=== PATIENT | female | born 2005 ===

== ENCOUNTER 2024-04-12 18:56 | Emergency (ER) | payer OTHER ==
[2024-04-12] MEDS: Ondansetron 4 MG/2 ML SDV IVPUSH STA (19:51)
[2024-04-12] MEDS: Sodium Chloride 0.9% 2.5 ML Syringe FLUSH PRN (19:52)
[2024-04-12] MEDS: Sodium Chloride 0.9% 1,000 ML IV STA (19:52)
[2024-04-12] MEDS: Sodium Chloride 0.9% 10 ML Syringe FLUSH PRN (19:52)
[2024-04-12 20:38] LABS: BASOPHILS ABSOLUTE AUTO 0.03 K/uL (0.00-0.30); BASOPHILS PERCENT AUTO 0.3 % (0.0-1.0); EOSINOPHILS ABSOLUTE AUTO 0.27 K/uL (0.00-0.70); EOSINOPHILS PERCENT AUTO 2.9 % (0.0-5.0); HEMATOCRIT 42.1 % (37.0-47.0); HEMOGLOBIN 14.1 g/dL (12.0-16.0); IMMATURE GRAN ABSOLUTE AUTO 0.03 K/uL (0.00-0.05); IMMATURE GRAN PERCENT AUTO 0.3 % (0.0-0.4); LYMPHOCYTES ABSOLUTE AUTO 3.05 K/uL (2.00-8.80); LYMPHOCYTES PERCENT AUTO 32.9 % (50.0-65.0); MEAN CORPUSCULAR HEMOGLOBIN 28.7 pg (28.0-32.0); MEAN CORPUSCULAR HGB CONC 33.5 g/dL (32.0-36.0); MEAN CORPUSCULAR VOLUME 85.7 fL (83.0-99.0); MEAN PLATELET VOLUME 10.4 fL (9.4-12.3); MONOCYTES ABSOLUTE AUTO 0.88 K/uL (0.10-1.40); MONOCYTES PERCENT AUTO 9.5 % (2.0-10.0); NEUTROPHILS PERCENT AUTO 54.1 % (35.0-45.0); PLATELET COUNT,PLT 319 K/uL (150-400); RED BLOOD CELL COUNT 4.91 M/uL (4.10-5.30); WHITE BLOOD CELL COUNT,WBC 9.26 K/uL (4.5-13.5)
[2024-04-12 21:02] LABS: A/G RATIO 0.7 (0.9-1.6); ALANINE AMINOTRANSFERASE,ALT 31 IU/L (14-63); ALBUMIN 3.6 g/dL (3.4-5.0); ALKALINE PHOSPHATASE 90 U/L (46-116); ASPARTATE AMNIOTRANSFERASE,AST 26 IU/L (15-37); BILIRUBIN TOTAL 0.7 mg/dL (0.2-1.0); BLOOD UREA NITROGEN,BUN 3 mg/dL (7.0-18.0); CALCIUM 9.3 mg/dL (8.5-10.1); CARBON DIOXIDE,CO2 24.9 mmol/L (21.0-32.0); CHLORIDE,CL 99 mmol/L (98-107); CREATININE 0.8 mg/dL (0.6-1.0); ESTIMATED GFR 109 mL/min (>60); GLUCOSE RANDOM 79 mg/dL (74-106); LIPASE 46 U/L (16-77); POTASSIUM,K 3.6 mmol/L (3.5-5.1); PROTEIN TOTAL,TP 8.5 g/dL (6.4-8.2); SODIUM,NA 136 mmol/L (136-145)
[2024-04-12] MEDS: Benzonatate 100 MG Cap PO STA (21:51)
== END 2024-04-12 21:57 | disposition home or self-care (01) ==
LOC: MW.ED 18:56
DX: B34.9 Viral infection, unspecified (principal); Z75.8 Other problems related to medical facilities and other health care
CPT/HCPCS: 36415; 71046; 80053; 83690; 84703; 85025; 86308; 96361; 96374; 99284; A9270; J2405; J3490; J7030